=== PATIENT | female | born 1965 | race Caucasian/White ===

== ENCOUNTER → 2018-07-22 | Outpatient (CLI) | payer BC ==
[~2018-07-22] MED LIST: AMOXICILLIN500 M1 PO; COLESTIPOL HCL1 G1 PO; DEXILANT60 MG PO; FLEXERIL PO; IBUPROFEN 800800 M1 PO; LEVOTHYROXIN0.112 M1 PO; NOHOMEMEDICATIONS; NORCO 5-325 TA1 EACH PO; OMEPRAZOLE40 MG PO; POTASSIUM20 PO; WELLBUTRIN 75 M75 M1 PO; XARELTO20 MG PO; ZOFRAN ODT4 MG PO
== END ==
LOC: M.NUC 07-13 14:00
DX: R68.81 Early satiety (principal); R11.0 Nausea

== ENCOUNTER 2019-01-19 07:00 | Inpatient (IN) | payer BC ==
[2019-01-12 08:42] LABS: ABSOLUTE EOSINOPHILS 0.1 thou/uL (0.0-0.7); ABSOLUTE LYMPHOCYTES 1.8 thou/uL (0.8-5.3); ABSOLUTE MONOCYTES 0.5 thou/uL (0.0-1.2); ABSOLUTE NEUTROPHILS 4.8 thou/uL (1.6-8.1); BASOPHILS 0.5 %; EOSINOPHILS 0.8 %; HEMATOCRIT 43.8 % (37.0-47.0); HEMOGLOBIN 15.1 gm/dL (12.0-15.0); LYMPHOCYTES 24.7 %; MCHC 34.3 g/dL (28.0-37.0); MONOCYTES 7.5 %; MPV 7.8 fl. (7.2-11.1); NUCLEATED RBCS 0 /100WBC; PLATELET COUNT* 230 thou/uL (150-400); POLYS 66.5 %; RBC 4.71 mil/uL (4.20-5.00); RDW-CV 13.4 % (10.5-14.5); WBC 7.2 thou/uL (4.0-11.0)
[2019-01-12 08:50] LABS: CALCIUM 8.6 mg/dL (8.5-10.1); CREATININE 1.1 mg/dL (0.6-1.3); POTASSIUM 3.9 mmol/L (3.5-5.1)
[2019-01-12 08:52] LABS: APTT 35.4 Seconds (25.0-31.3); INR 1.2; PROTIME 12.5 Seconds (9.20-11.50)
[2019-01-12 08:54] LABS: ALBUMIN 3.9 g/dL (3.4-5.0); TOTAL BILIRUBIN 0.7 mg/dL (<0.1-1.0); TOTAL PROTEIN 7.2 g/dL (6.4-8.2)
[2019-01-12 09:44] LABS: ESR (SEDRATE) 10 mm/hr (0-30)
--- NOTE | 2019-01-12 18:05 | EKG ---
[place] [address] ELECTROCARDIOGRAM REPORT Name: PADMINI NICHOLS Room: [facility].#: [id number] Admission: Attend Phys: Osmin Sarabia, Discharge: Date of : 63 Report #: [id number] THIS REPORT FOR: //name// [facility] Test Date: 2019-01-12 Test Time: 09:05:20 Pat Name: PADMINI NICHOLS Department: Room: Gender: F [employer] Worker: SHADI : 1965 Requested By: Osmin Sarabia Order Number: [id number] Reading MD: Tristan Blackburn Measurements Intervals [place] Rate: 63 P: 19 AL: 172 QRS: 33 QRSD: 99 T: 34 QT: 419 QTc: 429 Interpretive Statements Sinus rhythm Low voltage, precordial leads Compared to ECG 12/31/2015 14:14:19 No significant changes Electronically Signed On 01-12-2019 18:05:20 CDT by Tristan Blackburn [email or web address] <ELECTRONICALLY SIGNED> By: Allison Blackburn MD, [facility] 01/12/19 1805 4 4 Allison Blackburn MD, FACC /EPI
[2019-01-13 02:06] LABS: GLYCOHEMOGLOBIN (HGB A1C) 5.4 % (4.8-5.6)
[~2019-01-19] VITALS: Ht 172.7 cm; Wt 92.1 kg
--- NOTE | ~2019-01-19 | OP ---
[address] [address] OPERATIVE REPORT Name: PADMINI NICHOLS Room: [facility]#: [id number] Admission: 01/19/19 Attend Phys: Osmin Sarabia, Discharge: Date of : 63 Report #: [id number] THIS REPORT FOR: //name// CC: Osmin Zambranoo DICTATED BY: Aleksandr Del Rio DO DATE OF SERVICE: 01/19/2019 PREOPERATIVE DIAGNOSIS: Advanced degenerative joint disease of the right knee. POSTOPERATIVE DIAGNOSIS: Advanced degenerative joint disease of the right knee. PROCEDURE PERFORMED: Right total knee arthroplasty. SURGEON: Osmin Sarabia DO BIOTECHNICIAN: Aleksandr Del Rio DO SECOND CRACK OFF PERSON: Ahsan Moser DO ANESTHESIA: General. ESTIMATED BLOOD LOSS: 100 mL. COMPLICATIONS: None. CONDITION: Stable. DISPOSITION: To PACU. ANTIBIOTICS: 2 grams Ancef IV preoperatively. TOURNIQUET: 300 mmHg for 59 minutes. INDICATIONS: The patient is a pleasant 53-year-old female who has been followed in the outpatient orthopedic clinic regarding longstanding bilateral knee pain, right worse than left. X-rays and clinical exam were demonstrative of advanced degenerative joint disease of the right knee. She has failed conservative care including corticosteroid injections, attempted weight loss, activity modifications, home exercise programs and NSAIDs. We have thus discussed further treatment including surgical intervention with right total knee arthroplasty. Risks, benefits, complications and alternatives to the procedure were discussed with the patient in detail. Risks included but are not limited to bleeding, bleeding, DVT, PE, infection, continued pain, failure of implants, [place] [address] OPERATIVE REPORT Name: PADMINI NICHOLS Room: [facility].#: [id number] Admission: 01/19/19 Attend Phys: Osmin Sarabia, Discharge: Date of : 63 Report #: [id number] damage to neurovascular structures, need for repeat surgery, and complications of anesthesia. The patient expressed understanding and wished to proceed. DESCRIPTION OF PROCEDURE: The patient was transferred to the operating suite and placed on the operating table in supine position. She was given the benefit of general anesthesia. A well-padded pneumatic tourniquet was placed on the right upper thigh. The right lower extremity was then prepped and draped in the usual sterile fashion. A timeout was taken to confirm the appropriate patient identification, operative site and procedure to be performed. All in the room were in agreement at the timeout. Procedure began by performing an anterior midline longitudinal incision at the right knee. Dissection was carried down sharply to the level of the extensor mechanism. A fresh scalpel blade was then utilized to perform a medial parapatellar arthrotomy. A subperiosteal sleeve was developed along the medial aspect of the patella. Infrapatellar fat pad was sharply excised. Intramedullary drill was then used to obtain access to the femoral canal. Intramedullary guide was then used for the distal femur set to resect 10 mm of bone and 5 degrees of valgus. Cutting block was pinned into place and the distal femoral cut was performed through the cutting block. The AP sizer was then used to measure the distal femur. This measured appropriately, a size 5 mm. The 4-in-1 cutting block was then pinned into position set at 3 degrees of external rotation relative to the posterior condylar axis. Anterior, posterior and chamfer cuts were then performed through the cutting block. The attention was then addressed to the tibia where the extramedullary guide was used to set our proximal tibial cutting block in place. We referenced the medial third of the tibial tubercle, the tibial crest and the middle of the talus set at 3 degrees of posterior slope. The cutting block was pinned into position and the proximal tibial cut was performed through the cutting block. Through all of her bony cuts, retractors were used to protect vital structures. Flexion and extension gaps were checked and noted to be well balanced with full extension. The medial and lateral menisci and anterior and posterior cruciate ligaments were excised with electrocautery. The tibia was sized appropriately at a size 5 tibial baseplate, which was pinned into position in appropriate rotation. The trial femoral component was then malleted into position as well. A 10 mm spacer block was checked. The knee was taken through a range of motion and found to be well balanced in full extension, mid flexion and full flexion with appropriate varus and valgus and appropriate anterior drawer. The patella was everted and cut in freehand fashion. Patellar peg holes were drilled. Trial patella was put into position. The knee was taken through range of motion once more and noted that the patella tracked well. The trial components were removed. The tibia was drilled and punched for the [address] [address] OPERATIVE REPORT Name: PADMINI NICHOLS Room: [facility] David.#: [id number] Admission: 01/19/19 Attend Phys: Osmin Sarabia, Discharge: Date of : 63 Report #: [id number] tibial tray. The knee was thoroughly irrigated with pulsatile lavage. Cement was mixed on the back table and then applied to the back surface of the implants as well as the cut surface of her bones. Final implants were malleted into position. Cement was allowed to harden. Final 10 mm polyethylene was inserted. Final test of range of motion with her final implants again demonstrated a well-balanced knee in full extension, mid flexion and full flexion. There was appropriate amount of varus and valgus as well as anterior drawer. The patella tracked well. The knee was irrigated one more time. The extensor mechanism and capsule were closed using a #1 Vicryl, followed by #1 running Stratafix. Subcutaneous tissue was closed using 2-0 Vicryl in an inverted fashion. Final skin closure was performed using running subcuticular 3-0 Stratafix followed by skin glue. Prior to final closure, topical TXA was applied and orthopedic cocktail was injected. The patient tolerated the procedure well. Sterile dressings were applied and the patient was transferred to PACU in stable condition. ATTESTATION: Dr. Sarabia was present and scrubbed in through the entirety of the procedure. By: 1125 [id number] Sarabia, /nt
[~2019-01-19 07:00] MED LIST changes: -LEVOTHYROXIN0.112 M1 PO; +SYNTHROID100 MC1 PO; +TUMS PO; +ZANTAC 150MG T150 MG PO
[2019-01-19 07:34] VITALS: BP 132/87; BP 163/89
[2019-01-19 07:39] VITALS: BP 132/87
[2019-01-19 16:20] VITALS: BP 148/76
[2019-01-19 20:00] VITALS: BP 126/62
[2019-01-20] VITALS: BP 138/75
[2019-01-20 03:55] LABS: HEMATOCRIT 42.5 % (37.0-47.0); HEMOGLOBIN 14.3 gm/dL (12.0-15.0); MCH 31.5 pg (26.0-34.0); MCHC 33.8 g/dL (28.0-37.0); MCV 93.5 fL (80.0-100.0); MPV 8.1 fl. (7.2-11.1); RBC 4.55 mil/uL (4.20-5.00); RDW-CV 13.2 % (10.5-14.5); WBC 13.1 thou/uL (4.0-11.0)
[2019-01-20 04:15] VITALS: BP 134/71
[2019-01-20 04:15] LABS: ALBUMIN 3.4 g/dL (3.4-5.0); POTASSIUM 3.9 mmol/L (3.5-5.1); TOTAL BILIRUBIN 0.7 mg/dL (<0.1-1.0); TOTAL PROTEIN 6.7 g/dL (6.4-8.2)
--- NOTE | 2019-01-20 05:56 | NUR ---
Alert and oriented x 4. Rt knee island,silver mepilex dressing is chanel,dry and intact. We are keeping her ice packs filled. She has had some pain control problems. She had pain meds x 4 this shift. O2 has been at 2-3L n/c and she's been on capno which hasn't alarmed. Vitals have been stable. She is up with assist x 1 and walker to bedside commode and is voiding well. We will start her CPM this am. Juanas slept intermittenly.
[2019-01-20 07:40] VITALS: BP 114/59
--- NOTE | 2019-01-20 12:45 | NUR ---
SPOKE WITH PT.AND HER EX ,RAHUL. HE WILL BE STAYING WITH HER AT DISCHARGE. HER SON,AGE 36 WILL BE THERE SOMETIMES,ALSO. SHE IS HAVING PROBLEMS WITH PAIN CONTROL. TOLD HER I WOULD LET HER NURSE KNOW AND SHE WOULD DISCUSS IT WITH HER. PT.IS NORMALLY INDEPENDENT. WORKS CREDIT COLLECTIONS CLERK. SHE WILL NEED A FRONT WHEEL WALKER. SHE IS ALREADY ON XARELTO AT HOME,CHRONICALLY, FOR HX OF PE/DVTS. SHE IS FAMILIAR WITH HER CPM. SHE HAS ONE THAT WAS DELIVERED TO HER HOME LAST WED. SHE WILL NOT NEED TO TAKE THIS ONE WITH HER. ENCOURAGED TO USE HER ICE BAGS AT HOME TO KNEE. SHE WOULD LIKE HOME HEALTH FOR THE FIRST 2 WEEKS AFTER DISCHARGE SHE WILL NOT HAVE ANYONE TO DRIVE HER. WILL CHECK FOR HH THAT TAKES HER INSURANCE AND LET HER KNOW.
--- NOTE | 2019-01-20 15:39 | NUR ---
RECIEVED O.T. EVAL AND TX ORDERS. WILL DEFER TO P.T. AT THIS TIME. PLEASE ORDER FURTHER O.T. SERVICES IF NEEDED.
--- NOTE | 2019-01-20 18:08 | NUR ---
ASSUMED CARE OF PATIENT AT APPROX 0730. ALERT AND ORIENTED X4. ASSESSMENT COMPLETED AND CHARTED. VSS ON ROOM AIR. NO COMPLAINTS OF NAUSEA OR SOA. PAIN HAS BEEN MANAGED WITH IV MORPHINE AND OXY IR EVERY 3 HOURS. ICAE PACKS APPLIED TO KNEE. PATIENT UP WITH WALKER AND GAIT BELT, USING THE BATHROOM. WORKED WELL WITH THERAPIES AND PROGRESSED TOWARD GOALS. FALL PRECAUTIONS IN PLACE. HOURLY ROUNDS COMPLETED. CALL LIGHT WITHIN REACH. WILL CONTINUE TO MONITOR.
[2019-01-20 20:00] VITALS: BP 119/67
[2019-01-21] VITALS: BP 121/60
[2019-01-21 04:00] VITALS: BP 140/67
[2019-01-21 04:03] LABS: HEMOGLOBIN 12.8 gm/dL (12.0-15.0)
--- NOTE | 2019-01-21 05:09 | NUR ---
ASSUMED PT CARE AT 1930. PT ALERT AND ORIENTED X4, POLITE AND COOPERATIVE WITH CARES. VSS ON RA. NO C/O NAUSEA OR SOA. PT UP WITH GAIT BELT AND WALKER TO BATHROOM TO VOID. CPM ON PER PROTOCOL. RIGHT KNEE [place] SILVER MEPILEX DRESSING C/D/I. ICE PACKS TO RIGHT KNEE. PRN PAIN MEDICATION Q3 HOURS PER PT REQUEST. CALL LIGHT IN REACH. HOURLY ROUNDING IN PROGRESS, WILL CONTINUE TO MONITOR.
[2019-01-21 08:55] VITALS: BP 127/74
[2019-01-21] MEDS ORDERED: OXYCODONE HCL 55 MG PO (09:02)
[2019-01-21] MEDS ORDERED: VOLTAREN GEL 1100 G1 TOP (09:02)
[2019-01-21] MEDS ORDERED: DOK PLUS TABLE1 EACH PO (09:03)
[2019-01-21 12:50] VITALS: BP 140/67
--- NOTE | 2019-01-21 12:53 | NUR ---
Following for d/c planning needs. Pt to be d/c home with [facility] per previous CM note. Faxed d/c orders to [facility] and called to confirm receipt. No other needs identified.
[2019-01-21 17:26] VITALS: BP 140/67
[2019-01-21] MEDS ORDERED: TRAMADOL 50 MG50 MG PO (17:44)
[2019-01-21] MEDS ORDERED: VOLTAREN GEL 1100 G2 TOP (17:46)
[2019-01-21] MEDS ORDERED: SENNA PLUS 8.61 EACH PO (17:47)
--- NOTE | 2019-01-21 18:40 | NUR ---
DISCHARGE TO HOME W/ HOME HEALTH SERVICES. PATIENT ALERT AND ORIENTED X4 THRU SHIFT. EDUCATED ON PAIN CONTROL. PATIENT STATES VERBALLY OF UNDERSTANDING OF DISCHARGE INSTRUCTIONS. PATIENT ENC TO CONTINUE USING INC [employer] AT HOME. PATIENT STATES HAVING A CPM MACHINE AT HOME. BELONGINGS WITH PATIENT AND SIGNIG OTHER, FWW W/ PATIENT. COPY OF DISCHARGE INSTRUCTION GIVEN W/ ORIGINAL SCRIPTS. ICE PACKS USED FOR RT SURG SITE. BILAT THIGH HIGH TEDS ON. IV SL DISCONTINUED W/ CATH TIP INTACT, COTTON BALL/TAPE APPLIED TO SITE. ESCORTED TO AWAITING VEHICLE PER WC. DENIES OTHER NURSING NEEDS AT THIS TIME. HRLY ROUNDS DONE THIS SHIFT. ~TJRN
== END 2019-01-21 18:40 | disposition home health service (06) | DRG 470 ==
LOC: M.SUR 07:00 → M.TBA 11:40 → M.ORTHSURG 11:40
PROVIDERS: Family Medicine; Orthopaedic Surgery; ADMIT Internal Medicine
PROC: 0SRC0J9 Replacement of Right Knee Joint with Synthetic Substitute, Cemented, Open Approach (ICD-10-PCS; principal; 2019-01-19)
DX: M17.11 Unilateral primary osteoarthritis, right knee (principal); D68.59 Other primary thrombophilia; E03.9 Hypothyroidism, unspecified; F41.9 Anxiety disorder, unspecified; K21.9 Gastro-esophageal reflux disease without esophagitis; Z90.710 Acquired absence of both cervix and uterus; Z86.718 Personal history of other venous thrombosis and embolism; Z88.8 Allergy status to other drugs, medicaments and biological substances; Z91.013 Allergy to seafood; Z86.711 Personal history of pulmonary embolism; Z79.01 Long term (current) use of anticoagulants

== ENCOUNTER 2021-01-17 09:44 | Emergency (ER) | payer OTHER ==
[~2021-01-17] VITALS: Ht 175.3 cm; Wt 95.7 kg
[~2021-01-17 09:44] MED LIST changes: +DOK PLUS TABLE1 EACH PO; +OXYCODONE HCL 55 MG PO; +REGLAN 5 MG TAB5 MG PO; +SENNA PLUS 8.61 EACH PO; +TRAMADOL 50 MG50 MG PO; +TYLENOL ARTHRI650 MG PO; +VOLTAREN GEL 1100 G1 TOP; +VOLTAREN GEL 1100 G2 TOP; +WELLBUTRIN XL300 MG PO
[2021-01-17 12:16] LABS: ABSOLUTE BASOPHILS 0.1 thou/uL (0.0-0.2); ABSOLUTE EOSINOPHILS 0.2 thou/uL (0.0-0.7); ABSOLUTE LYMPHOCYTES 1.4 thou/uL (0.8-5.3); ABSOLUTE MONOCYTES 0.6 thou/uL (0.0-1.2); ABSOLUTE NEUTROPHILS 3.6 thou/uL (1.6-8.1); BASOPHILS 0.9 %; EOSINOPHILS 2.8 %; HEMATOCRIT 42.8 % (37.0-47.0); HEMOGLOBIN 14.8 gm/dL (12.0-15.0); LYMPHOCYTES 24.5 %; MCH 32.2 pg (26.0-34.0); MCHC 34.5 g/dL (28.0-37.0); MCV 93.2 fL (80.0-100.0); MONOCYTES 10.7 %; MPV 7.5 fl. (7.2-11.1); NUCLEATED RBCS 0 /100WBC; PLATELET COUNT* 209 thou/uL (150-400); POLYS 61.1 %; RDW-CV 12.7 % (10.5-14.5); WBC 5.9 thou/uL (4.0-11.0)
[2021-01-17 12:23] LABS: CALCIUM 8.4 mg/dL (8.5-10.1); CREATININE 1.2 mg/dL (0.6-1.3); POTASSIUM 3.9 mmol/L (3.5-5.1)
[2021-01-17 12:28] LABS: TOTAL BILIRUBIN 0.7 mg/dL (<0.1-1.0); TOTAL PROTEIN 7.2 g/dL (6.4-8.2)
[2021-01-17 13:20] LABS: ESR (SEDRATE) 10 mm/hr (0-30)
[2021-01-17] MEDS ORDERED: APAP W/CODEINE1 TA2 PO (13:35)
[2021-01-17] MEDS ORDERED: CIPROFLOXIN HC2.5 M1 OPHTHALMIC (13:35)
[2021-01-17 13:45] VITALS: BP 139/98
== END 2021-01-17 13:46 | disposition home or self-care (01) ==
LOC: M.ERS 09:44
PROVIDERS: Physician Assistant
DX: M25.562 Pain in left knee (principal); H57.12 Ocular pain, left eye; M79.605 Pain in left leg; Z91.013 Allergy to seafood; E03.9 Hypothyroidism, unspecified; K21.9 Gastro-esophageal reflux disease without esophagitis; Z79.899 Other long term (current) drug therapy

== ENCOUNTER → 2021-04-15 | Outpatient (CLI) | payer OTHER ==
[~2021-04-15] MED LIST changes: +APAP W/CODEINE1 TA2 PO; +CIPROFLOXIN HC2.5 M1 OPHTHALMIC
== END ==
LOC: M.RAD 16:21
PROVIDERS: ATTEND Family Medicine
DX: Z12.31 Encounter for screening mammogram for malignant neoplasm of breast (principal)

== ENCOUNTER → 2021-05-21 | Outpatient (CLI) | payer OTHER | END | disposition home or self-care (01) | LOC: M.RAD 05-14 10:15 | PROVIDERS: ATTEND Family Medicine | DX: M25.512 Pain in left shoulder (principal); M67.814 Other specified disorders of tendon, left shoulder; Z79.899 Other long term (current) drug therapy ==